=== PATIENT | male | born 1990 | race Hispanic/Latino ===

== ENCOUNTER 2019-07-30 19:20 | Emergency (ER) | payer BC, SELFPAY ==
[2019-07-30] MEDS ORDERED: IBUPROFEN 400 MG TAB ONE (19:40)
[2019-07-30] MEDS ORDERED: TETANUS & DIPHTHERIA TOX,ADULT 0.5 ML VIAL ONE (19:40)
[2019-07-30] MEDS ORDERED: HYDROCODONE/APAP 5/325 MG TAB ONE (19:40)
--- NOTE | 2019-07-30 20:09 | ER ---
Nurse's Notes [facility] Name: Jaquan Watkins Age: 29 yrs Sex: Male : 1990 Arrival Date: 07/30/2019 Time: 19:24 Bed 8 Private MD: Diagnosis: Other bursitis of elbow, left elbow-traumatic Presentation: 07/30 19:28 Presenting complaint: Patient states: "Last night I fell on my arm, and I iced it down aj1 but today Im losing feeling in my pinky and my ring finger and its swollen a lot" Patient reports pain to left forearm. Transition of care: patient was not received from another setting of care. Onset of symptoms was July 29, 2019. Risk Assessment: Do you want to hurt yourself or someone else? Patient reports no desire to harm self or others. Initial Sepsis Screen: Does the patient meet any 2 criteria? No. Patient's initial sepsis screen is negative. Does the patient have a suspected source of infection? No. Patient's initial sepsis screen is negative. Care prior to arrival: None. 19:28 Method Of Arrival: Ambulatory [facility] 19:28 Acuity: [place] 4 aj1 Triage Assessment: 19:29 General: Appears in no apparent distress. uncomfortable, Behavior is calm, cooperative, aj1 appropriate for age. Pain: Complains of pain in palmar aspect of left forearm Pain currently is 10 out of 10 on a pain scale. Neuro: Level of Consciousness is awake, alert, obeys commands. Cardiovascular: Patient's skin is warm and dry. Respiratory: Airway is patent Respiratory effort is even, unlabored, Respiratory pattern is regular, symmetrical. Musculoskeletal: Range of motion: limited in left elbow Swelling present in left elbow and palmar aspect of left forearm. Injury Description: Patient reports that he fell on his arm while running. Historical: - Allergies: 19:29 No Known Allergies; aj1 - Home Meds: 19:29 None [Active]; aj1 - PMHx: 19:29 None; aj1 - PSHx: 19:29 None; aj1 - Immunization history:: Flu vaccine is not up to date. - Social history:: Smoking status: Patient uses tobacco products, 5 cigarettes per day. - Ebola Screening: : Patient denies travel to an Ebola-affected area in the 21 days before illness onset. Screenin:31 Abuse screen: Denies threats or abuse. Nutritional screening: No deficits noted. jb4 Tuberculosis screening: No symptoms or risk factors identified. Fall Risk None identified. Assessment: 19:31 General: Appears in no apparent distress. comfortable, Behavior is calm, cooperative, jb4 appropriate for age. Pain: Complains of pain in left elbow Pain radiates to left hand Pain currently is 10 out of 10 on a pain scale. Quality of pain is described as throbbing. Neuro: Level of Consciousness is awake, alert, obeys commands, Oriented to person, place, time, situation. Cardiovascular: Patient's skin is warm and dry. Respiratory: Airway is patent Respiratory effort is even, unlabored, Respiratory pattern is regular, symmetrical. GI: No deficits noted. No signs and/or symptoms were reported involving the gastrointestinal system. : No deficits noted. No signs and/or symptoms were reported regarding the genitourinary system. EENT: No deficits noted. No signs and/or symptoms were reported regarding the EENT system. Derm: Skin is intact, Skin is pink, warm \\T\\ dry. Musculoskeletal: Amputation of Range of motion: limited in left elbow. 20:34 Reassessment: Patient appears in no apparent distress at this time. Patient and/or jb4 family updated on plan of care and expected duration. Pain level reassessed. Patient is alert, oriented x 3, equal unlabored respirations, skin warm/dry/pink. PT verbalized understanding of d/c and follow up instructions. Vital Signs: 19:29 BP 145 / 91; Pulse 86; Resp 18; Temp 98.0; Pulse Ox 97% on R/A; Weight 87.54 kg (R); aj1 Height 5 ft. 5 in. (165.10 cm) (R); Pain 10/10; 19:29 Body Mass Index 32.12 (87.54 kg, 165.10 cm) aj1 ED Course: 19:24 Patient arrived in ED. cl3 19:29 Triage completed. aj1 19:29 Arm band placed on Patient placed in an exam room. aj1 19:31 Patient has correct armband on for positive identification. Bed in low position. Call jb4 light in reach. Side rails up X 1. Pulse ox on. NIBP on. 19:33 Skyler Gamboa MD is Attending Physician. snw 19:33 Mall[facility] Rolon [facility]C [facility] snw 19:33 Soco Ayala is Primary Nurse. 19:34 Primary Nurse role handed off by Soco Ayala jb4 19:34 Seun Wade, RN is Primary Nurse. jb4 20:03 Elbow Left 3 View XRAY In Process Unspecified. EDMS 20:07 James Baird MD is Referral Physician. snw 20:34 No provider procedures requiring assistance completed. Patient did not have IV access jb4 during this emergency room visit. 20:34 Sling applied to left arm. jb4 Administered Medications: 19:47 Drug: Tetanus-Diphtheria Toxoid Adult 0.5 ml {Recreational Therapist: [employer]. Exp: jb4 03/04/2021. Lot #: [id number]. } Route: IM; Site: right deltoid; 20:30 Follow up: Response: No adverse reaction jb4 19:47 Drug: HYDROcodone-acetaminophen 5 mg-325 mg 1 tabs {Note: Rass score 0.} Route: PO; jb4 20:10 Follow up: Response: No adverse reaction; Pain is decreased jb4 19:47 Drug: Motrin 400 mg Route: PO; jb4 20:10 Follow up: Response: No adverse reaction; Pain is decreased jb4 20:29 Drug: Bactroban Ointment 2 % 1 application Route: Topical; Site: wound; jb4 20:29 Follow up: Response: Medication administered at discharge. jb4 Outcome: 20:08 Discharge ordered by MD. snw 20:34 Discharged to home ambulatory, with family. jb4 20:34 Condition: stable 20:34 Discharge instructions given to patient, family, Instructed on discharge instructions, follow up and referral plans. medication usage, Demonstrated understanding of instructions, follow-up care, medications, Prescriptions given X 2. 20:35 Patient left the ED. jb4 Signatures: Dispatcher [employer] EDWV Marjan Perez RN RN aj1 Mallory Rolon FNP-C PROCESS IMPROVEMENT ANALYST-Csnw Seun Wade, RN RN jb4 Soco Ayala Trice Silva cl3
--- NOTE | 2019-07-30 20:09 | EDPHYS ---
Physician Documentation [facility] Name: Jaquan Watkins Age: 29 yrs Sex: Male : 1990 Arrival Date: 07/30/2019 Time: 19:24 Bed 8 Private MD: ED Physician Skyler Gamboa HPI: 07/30 19:51 This 29 yrs old Male presents to ER via Ambulatory with complaints of Elbow snw Injury. 19:51 The patient or guardian complains of a crush injury, fell onto left elbow, pain, snw swelling, tenderness. The complaints affect the left elbow. Context: The problem was sustained outdoors, resulted from a fall. Onset: The symptoms/episode began/occurred suddenly, last night. Treatment prior to arrival includes: icing the affected extremity. Associated signs and symptoms: Pertinent positives: tingling, of the left ring and pinkie finger. Severity of symptoms: At their worst the symptoms were moderate. The patient has not experienced similar symptoms in the past. It is unknown whether or not the patient has recently seen a physician. Historical: - Allergies: 19:29 No Known Allergies; aj1 - Home Meds: 19:29 None [Active]; aj1 - PMHx: 19:29 None; aj1 - PSHx: 19:29 None; aj1 - Immunization history:: Flu vaccine is not up to date. - Social history:: Smoking status: Patient uses tobacco products, 5 cigarettes per day. - Ebola Screening: : Patient denies travel to an Ebola-affected area in the 21 days before illness onset. ROS: 19:50 Constitutional: Negative for fever, chills, and weight loss, Eyes: Negative for injury, snw pain, redness, and discharge, ENT: Negative for injury, pain, and discharge, Neck: Negative for injury, pain, and swelling, Cardiovascular: Negative for chest pain, palpitations, and edema, Respiratory: Negative for shortness of breath, cough, wheezing, and pleuritic chest pain, Abdomen/GI: Negative for abdominal pain, nausea, vomiting, diarrhea, and constipation, Back: Negative for injury and pain, : Negative for injury, bleeding, discharge, and swelling, Skin: Negative for injury, rash, and discoloration, Neuro: Negative for headache, weakness, numbness, tingling, and seizure, Psych: Negative for depression, anxiety, suicide ideation, homicidal ideation, and hallucinations. 19:50 MS/extremity: Positive for injury or acute deformity, decreased range of motion, pain, swelling, of the left elbow. Exam: 19:49 Constitutional: This is a well developed, well nourished patient who is awake, alert, snw and in no acute distress. Head/Face: Normocephalic, atraumatic. Eyes: Pupils equal round and reactive to light, extra-ocular motions intact. Lids and lashes normal. Conjunctiva and sclera are non-icteric and not injected. Cornea within normal limits. Periorbital areas with no swelling, redness, or edema. ENT: Nares patent. No nasal discharge, no septal abnormalities noted. Tympanic membranes are normal and external auditory canals are clear. Oropharynx with no redness, swelling, or masses, exudates, or evidence of obstruction, uvula midline. Mucous membranes moist. Neck: Trachea midline, no thyromegaly or masses palpated, and no cervical lymphadenopathy. Supple, full range of motion without nuchal rigidity, or vertebral point tenderness. No Meningismus. Chest/axilla: Normal chest wall appearance and motion. Nontender with no deformity. No lesions are appreciated. Cardiovascular: Regular rate and rhythm with a normal S1 and S2. No gallops, murmurs, or rubs. Normal PMI, no JVD. No pulse deficits. Respiratory: Lungs have equal breath sounds bilaterally, clear to auscultation and percussion. No rales, rhonchi or wheezes noted. No increased work of breathing, no retractions or nasal flaring. Abdomen/GI: Soft, non-tender, with normal bowel sounds. No distension or tympany. No guarding or rebound. No evidence of tenderness throughout. Back: No spinal tenderness. No costovertebral tenderness. Full range of motion. Neuro: Awake and alert, GCS 15, oriented to person, place, time, and situation. Cranial nerves II-XII grossly intact. Motor strength 5/5 in all extremities. Sensory grossly intact. Cerebellar exam normal. Normal gait. Psych: Awake, alert, with orientation to person, place and time. Behavior, mood, and affect are within normal limits. 19:49 Musculoskeletal/extremity: Extremities: grossly normal except: noted in the left elbow: contusion, decreased ROM, swelling, tenderness, ROM: limited active range of motion due to pain, Circulation is intact in all extremities. decreased sensation, to fingers 19:49 Skin: Appearance: normal except for affected area, lesion(s), pustule(s) noted, located on the center of ecchymotic area of left elbow. Vital Signs: 19:29 BP 145 / 91; Pulse 86; Resp 18; Temp 98.0; Pulse Ox 97% on R/A; Weight 87.54 kg (R); aj1 Height 5 ft. 5 in. (165.10 cm) (R); Pain 10/; 19:29 Body Mass Index 32.12 (87.54 kg, 165.10 cm) aj1 MDM: 19:33 Patient medically screened. snw 20:09 Data reviewed: vital signs, nurses notes. Data interpreted: Pulse oximetry: on room air snw is 97 %. Interpretation: normal. Counseling: I had a detailed discussion with the patient and/or guardian regarding: the historical points, exam findings, and any diagnostic results supporting the discharge/admit diagnosis, radiology results, the need for outpatient follow up, to return to the emergency department if symptoms worsen or persist or if there are any questions or concerns that arise at home. Special discussion: I have referred the patient to see his PCP for further evaluation of high blood pressure. Based on the history and exam findings, there is no indication for further emergent testing or inpatient evaluation. I discussed with the patient/guardian the need to see the orthopedic surgeon for further evaluation of the symptoms. I discussed with the patient/guardian the need to see the primary care provider for further evaluation of the symptoms. 07/30 19:37 Order name: Elbow Left 3 View XRAY; Complete Time: 20:23 snw 07/30 19:37 Order name: Sling; Complete Time: 20:15 snw Administered Medications: 19:47 Drug: Tetanus-Diphtheria Toxoid Adult 0.5 ml {Warehouse Foreman: [employer]. Exp: jb4 03/04/2021. Lot #: [id number]. } Route: IM; Site: right deltoid; 20:30 Follow up: Response: No adverse reaction jb4 19:47 Drug: HYDROcodone-acetaminophen 5 mg-325 mg 1 tabs {Note: Rass score 0.} Route: PO; jb4 20:10 Follow up: Response: No adverse reaction; Pain is decreased jb4 19:47 Drug: Motrin 400 mg Route: PO; jb4 20:10 Follow up: Response: No adverse reaction; Pain is decreased jb4 20:29 Drug: Bactroban Ointment 2 % 1 application Route: Topical; Site: wound; jb4 20:29 Follow up: Response: Medication administered at discharge. jb4 Disposition: 07/31 07:10 Co-signature as Attending Physician, Skyler Gamboa MD Available for consultation at ps1 all times . Disposition: 07/30/19 20:08 Discharged to Home. Impression: Other bursitis of elbow, left elbow - traumatic. - Condition is Stable. - Discharge Instructions: Bursitis, Hypertension, Heat Therapy. - Prescriptions for Mobic 7.5 mg Oral Tablet - take 1 tablet by ORAL route once daily take with food; 20 tablet. orphenadrine citrate 100 mg Oral Tablet Sustained Release - take 1 tablet by ORAL route 2 times per day As needed; 20 tablet. - Medication Reconciliation Form, Thank You Letter, Antibiotic Education, Prescription Opioid Use form. - Follow up: James Baird MD; When: 2 - 3 days; Reason: Recheck today's complaints, Continuance of care, Re-evaluation by your physician. Signatures: Dispatcher [employer] EDMarjan Gastelum RN RN aj1 Mallory Rolon, TECHNICAL MARKETING ENGINEER-C TECHNICAL MARKETING ENGINEER-Csnw Seun Wade RN RN jb4 Skyler Gamboa MD MD ps1 Corrections: (The following items were deleted from the chart) 07/30 20:35 20:08 07/30/2019 20:08 Discharged to Home. Impression: Other bursitis of elbow, left jb4 elbow - traumatic. Condition is Stable. Forms are Medication Reconciliation Form, Thank You Letter, Antibiotic Education, Prescription Opioid Use. Follow up: James Baird; When: 2 - 3 days; Reason: Recheck today's complaints, Continuance of care, Re-evaluation by your physician. snw
[2019-07-30] MEDS ORDERED: MUPIROCIN 2% OINT 22GM TUBE TOP ONE (20:17)
--- NOTE | 2019-07-30 20:19 | RAD REPORT ---
EXAM DESCRIPTION: RAD - Elbow Left 3 View - 07/30/2019 8:05 pm CLINICAL HISTORY: Left elbow pain status post trauma FINDINGS: No fracture or dislocation is seen. If patient continues have symptoms to suggest an occult fracture follow up plain film series in 7 day s would be recommended
[2019-07-30 21:17] VITALS: BP 145/91; TEMP 98; O2SAT 97
== END 2019-07-30 20:35 | disposition home or self-care (01) ==
LOC: ER 19:20
DX: M70.32 Other bursitis of elbow, left elbow (principal); W18.30XA Fall on same level, unspecified, initial encounter; Y92.9 Unspecified place or not applicable; Y93.89 Activity, other specified; F17.210 Nicotine dependence, cigarettes, uncomplicated
CPT/HCPCS: 90471; 90714; 99284

== ENCOUNTER 2022-01-11 11:00 | Emergency (ER) | payer SELFPAY ==
[2022-01-11] MEDS ORDERED: ONDANSETRON 4 MG/2 ML VIAL ONE (11:40)
[2022-01-11] MEDS ORDERED: MORPHINE 4 MG/ML SYR ONE ×3 (11:40→13:09)
[2022-01-11] MEDS ORDERED: NA CHLORIDE 0.9% 0 ML ONE (11:40)
[2022-01-11 11:47] LABS: Absolute Lymphocytes (CBC) 1.1 K/uL (0.7-4.9); Hematocrit 44.2 % (39.6-49.0); MPV 8.1 fL (7.6-11.3); RBC Red Blood Cell Count 5.13 M/uL (4.33-5.43)
[2022-01-11 12:01] LABS: Urine Blood Trace-intact (Negative); Urine Glucose Negative (Negative); Urine Protein Negative (Negative); Urine pH 8.5 (5.0-7.0)
[2022-01-11 12:11] LABS: Albumin 4.4 g/dL (3.4-5.0); Bilirubin Total 0.6 mg/dL (0.2-1.0); Potassium 4.2 mmol/L (3.5-5.1); Protein, Total 8.3 g/dL (6.4-8.2)
--- NOTE | 2022-01-11 12:11 | RAD REPORT ---
EXAM DESCRIPTION: CT - Stone Protocol - 01/11/2022 11:46 am CLINICAL HISTORY: Flank pain. left flank pain COMPARISON: No comparisons TECHNIQUE: Axial images were obtained without oral or IV contrast. Lack of contrast limits solid org an and vascular assessment. The [id number] spans the entirety of the system partially obscuring uppermost abdomen and lung bases. Coronal reformatted images were obtained and reviewed. All CT scans are performed using dose optimization technique as appropriate and may include automated exposure control or mA/KV adjustment according to patient size. FINDINGS: The lower lung pineda are clear. Imaged portions of the liver and spleen show no suspicious findings on non-contrast imaging. The panc reas and adrenal glands are normal. No pathologic lymphadenopathy in the abdomen or pelvis. There is a 5 mm stone at the left UPJ resulting mild left hydronephrosis. Small calculus is present m id-pole right kidney. No bowel obstruction, free air, free fluid or abscess. Normal appendix noted.Small fat containing umb ilical hernia. No significant bony abnormality. IMPRESSION: 5 mm stone left UPJ resulting in mild left hydronephrosis. Punctate calculus right kidney mid calyx without hydronephrosis.
[2022-01-11 12:17] LABS: Urine Bacteria NONE SEEN /HPF (NONE SEEN)
[2022-01-11] MEDS ORDERED: TAMSULOSIN 0.4 MG SR CAP ONE (13:07)
[2022-01-11] MEDS ORDERED: MAGNESIUM SULFATE 1 gm IVPB 1 GM/100 ML BAG IV ONE (13:11)
--- NOTE | 2022-01-11 14:45 | ER ---
Nurse's Notes [facility] Name: Jaquan Watkins Age: 31 yrs Sex: Male : 1990 Arrival Date: 01/11/2022 Time: 11:02 Bed 14 Private MD: Diagnosis: Calculus of kidney with calculus of ureter Presentation: 01/11 11:04 Chief complaint: Patient states: "since 7am I've had this sharp pain in my stomach and ab2 it goes to my lower back." Pt denies any urinary symptoms. Pt denies n/v/d. Coronavirus screen: Vaccine status: Patient reports being unvaccinated. Client denies travel out of the [place] in the last 14 days. At this time, the client does not indicate any symptoms associated with coronavirus-19. Ebola Screen: Patient negative for fever greater than or equal to 101.5 degrees Fahrenheit, and additional compatible Ebola Virus Disease symptoms Patient denies exposure to infectious person. Patient denies travel to an Ebola-affected area in the 21 days before illness onset. No symptoms or risks identified at this time. Initial Sepsis Screen: Does the patient meet any 2 criteria? No. Patient's initial sepsis screen is negative. Does the patient have a suspected source of infection? No. Patient's initial sepsis screen is negative. Risk Assessment: Do you want to hurt yourself or someone else? Patient reports no desire to harm self or others. Onset of symptoms is unknown. 11:04 Method Of Arrival: Ambulatory ab2 11:04 Acuity: [place] 3 ab2 Triage Assessment: 11:06 General: Appears uncomfortable, Behavior is calm, cooperative, appropriate for age. ab2 Pain: Complains of pain in back and left upper quadrant Pain radiates to left low back. Respiratory: Airway is patent Respiratory effort is even, unlabored. GI: Reports upper abdominal pain, cramping. Historical: - Allergies: 11:06 No Known Allergies; ab2 - PMHx: 11:06 None; ab2 - PSHx: 11:06 None; ab2 - Immunization history:: Adult Immunizations up to date. - Social history:: Smoking status: Patient denies any tobacco usage or history of. - Family history:: not pertinent. - Hospitalizations: : No recent hospitalization is reported. Screenin:26 Abuse screen: Denies threats or abuse. Denies injuries from another. Nutritional cb5 screening: No deficits noted. Tuberculosis screening: No symptoms or risk factors identified. 13:26 Fall Risk None identified. cb5 Assessment: 11:15 General: Appears uncomfortable, well groomed, Behavior is calm, cooperative, cb5 appropriate for age. Pain: Complains of pain in left low back and abdomen and back and left upper quadrant. Neuro: No deficits noted. Cardiovascular: No deficits noted. Respiratory: No deficits noted. GI: No deficits noted. Bowel sounds present X 4 quads. : No deficits noted. EENT: No deficits noted. Derm: No deficits noted. Musculoskeletal: No deficits noted. 13:36 Pain: Complains of pain in left low back and abdomen and back Pain currently is 1 out cb5 of 10 on a pain scale. 14:15 General: pt asleep, no distress, safety precautions are in effect.. cb5 Vital Signs: 11:04 BP 148 / 95; Pulse 87; Resp 16; Temp 97.8(TE); Pulse Ox 99% on R/A; Weight 97.52 kg; ab2 Height 5 ft. 5 in. (165.10 cm); Pain 10/10; 14:18 BP 125 / 74; Pulse 79; Resp 16; Pulse Ox 98% ; cb5 14:58 BP 121 / 78; Pulse 77; Resp 16; Temp 98.6; Pulse Ox 98% ; Pain 0/10; cb5 11:04 Body Mass Index 35.78 (97.52 kg, 165.10 cm) ab2 ED Course: 11:02 Patient arrived in ED. as 11:06 Triage completed. ab2 11:06 Bed in low position. Call light in reach. cb5 11:07 Arm band placed on right wrist. ab2 11:08 Randolph Miranda MD is Attending Physician. rn 11:26 Negrita Hargrove RN is Primary Nurse. cb5 11:42 CBC with Diff Sent. cb5 11:42 CMP Sent. cb5 11:42 Urine Microscopic Only Sent. cb5 11:48 CT Stone Protocol In Process Unspecified. EDMS 14:59 IV discontinued. cb5 14:59 No provider procedures requiring assistance completed. cb5 Administered Medications: 11:42 Drug: Zofran (Ondansetron) 4 mg Route: IVP; Site: right antecubital; cb5 11:42 Drug: morphine 4 mg Route: IVP; Site: right antecubital; cb5 13:08 Drug: Magnesium Sulfate 1 grams Route: IVPB; Infused Over: 1 hrs; Site: right cb5 antecubital; 13:08 Drug: Flomax (tamsulosin) 0.4 mg Route: PO; cb5 13:08 Drug: morphine 4 mg Route: IVP; Site: right antecubital; cb5 14:59 Not Given (Patient Refused): Demerol (meperidine) 12.5 mg IVP once; RASS on ADMIN: cb5 Combtv4, Very Agttd3, Agttd2, Rstlss1, AlertClm0, Drwsy-1, Lt Sdtn-2, Mod Sdtn-3, Dp Sdtn-4, UnArsble-5 Outcome: 14:44 Discharge ordered by . rn 14:59 Discharged to home ambulatory. 5 14:59 Condition: stable 14:59 Discharge instructions given to patient. 15:00 Patient left the ED. 5 Signatures: Dispatcher [employer] Tejal Phan Roman, MD MD rn Boman, Colleen, RN RN cb5 Manuel Robison
--- NOTE | 2022-01-11 14:45 | EDPHYS ---
Physician Documentation [facility] Name: Jaquan Watkins Age: 31 yrs Sex: Male : 1990 Arrival Date: 01/11/2022 Time: 11:02 Bed 14 Private MD: ED Physician Randolph Miranda HPI: 01/11 11:51 This 31 yrs old Male presents to ER via Ambulatory with complaints of rn Abdominal Pain. 11:51 The patient presents with abdominal pain in the left lower quadrant. Onset: The rn symptoms/episode began/occurred this morning. The symptoms radiate to left back. Associated signs and symptoms: Pertinent positives: nausea, Pertinent negatives: blood in stools, diarrhea, dysuria, fever, vomiting, vomiting blood. The symptoms are described as intermittent, sharp. Modifying factors: The symptoms are alleviated by nothing, the symptoms are aggravated by nothing. Severity of pain: At its worst the pain was moderate in the emergency department the pain is unchanged. The patient has experienced similar episodes in the past. The patient has not recently seen a physician. Pt reports LLQ abd pain that began this AM, no trauma, no fever, no urinary symptoms. Has happened twice before but went away on its own after an hour or so. Reports assoc left flank pain. Pain radiates to left groin.. Historical: - Allergies: 11:06 No Known Allergies; ab2 - PMHx: 11:06 None; ab2 - PSHx: 11:06 None; ab2 - Immunization history:: Adult Immunizations up to date. - Social history:: Smoking status: Patient denies any tobacco usage or history of. - Family history:: not pertinent. - Hospitalizations: : No recent hospitalization is reported. ROS: 11:51 Constitutional: Negative for fever, chills, and weight loss, Eyes: Negative for injury, rn pain, redness, and discharge, Neck: Negative for injury, pain, and swelling, Cardiovascular: Negative for chest pain, palpitations, and edema, Respiratory: Negative for shortness of breath, cough, wheezing, and pleuritic chest pain, Abdomen/GI: + LLQ abd pain Back: + left lower back and flank pain : Negative for injury, bleeding, discharge, and swelling, MS/Extremity: Negative for injury and deformity, Skin: Negative for injury, rash, and discoloration, Neuro: Negative for headache, weakness, numbness, tingling, and seizure. Exam: 11:51 Constitutional: This is a well developed, well nourished patient who is awake, alert, rn pacing in room, appears uncomfortable Head/Face: Normocephalic, atraumatic. Cardiovascular: Regular rate and rhythm. No pulse deficits. Respiratory: No increased work of breathing, no retractions or nasal flaring. Abdomen/GI: Soft, non-tender Back: No spinal tenderness. No costovertebral tenderness. Full range of motion. Skin: Warm, dry MS/ Extremity: Pulses equal, no cyanosis. Neuro: Awake and alert, GCS 15 Vital Signs: 11:04 BP 148 / 95; Pulse 87; Resp 16; Temp 97.8(TE); Pulse Ox 99% on R/A; Weight 97.52 kg; ab2 Height 5 ft. 5 in. (165.10 cm); Pain 10/10; 14:18 BP 125 / 74; Pulse 79; Resp 16; Pulse Ox 98% ; cb5 14:58 BP 121 / 78; Pulse 77; Resp 16; Temp 98.6; Pulse Ox 98% ; Pain 0/10; cb5 11:04 Body Mass Index 35.78 (97.52 kg, 165.10 cm) ab2 MDM: 11:08 Patient medically screened. rn 14:43 Differential diagnosis: diverticulitis, Ureterolithiasis, urinary tract infection. Data rn reviewed: vital signs, nurses notes, lab test result(s), radiologic studies, CT scan, and as a result, I will discharge patient. Counseling: I had a detailed discussion with the patient and/or guardian regarding: the historical points, exam findings, and any diagnostic results supporting the discharge/admit diagnosis, lab results, radiology results, the need for outpatient follow up, to return to the emergency department if symptoms worsen or persist or if there are any questions or concerns that arise at home. Response to treatment: the patient's symptoms have markedly improved after treatment, sleeping comfortably. Special discussion: Based on the patient's Hx, exam, and Dx evaluation, there is no indication for emergent surgery or inpatient Tx. It is understood by the patient/guardian that if the Sx's persist or worsen they need to return immediately for re-evaluation. I discussed with the patient/guardian in detail that at this point there is no indication for admission to the hospital. It is understood, however, that if the symptoms persist or worsen the patient needs to return immediately for re-evaluation. 01/11 11:13 Order name: CBC with Diff; Complete Time: 12:14 rn 01/11 11:13 Order name: CMP; Complete Time: 12:14 rn 01/11 11:13 Order name: Urine Microscopic Only; Complete Time: 12:26 rn 01/11 11:13 Order name: CT Stone Protocol; Complete Time: 12:14 rn 01/11 12:01 Order name: Urine Dipstick-Ancillary; Complete Time: 12:14 EDMS 01/11 11:13 Order name: IV Saline Lock; Complete Time: 11:42 rn 01/11 11:13 Order name: Labs collected and sent; Complete Time: 11:42 rn 01/11 11:13 Order name: Urine Dipstick-Ancillary (obtain specimen) rn Administered Medications: 11:42 Drug: Zofran (Ondansetron) 4 mg Route: IVP; Site: right antecubital; cb5 11:42 Drug: morphine 4 mg Route: IVP; Site: right antecubital; cb5 13:08 Drug: Magnesium Sulfate 1 grams Route: IVPB; Infused Over: 1 hrs; Site: right cb5 antecubital; 13:08 Drug: Flomax (tamsulosin) 0.4 mg Route: PO; cb5 13:08 Drug: morphine 4 mg Route: IVP; Site: right antecubital; cb5 14:59 Not Given (Patient Refused): Demerol (meperidine) 12.5 mg IVP once; RASS on ADMIN: cb5 Combtv4, Very Agttd3, Agttd2, Rstlss1, AlertClm0, Drwsy-1, Lt Sdtn-2, Mod Sdtn-3, Dp Sdtn-4, UnArsble-5 Disposition Summary: 01/11/22 14:44 Discharge Ordered Location: Home rn Problem: new rn Symptoms: have improved rn Condition: Stable rn Diagnosis - Calculus of kidney with calculus of ureter rn Followup: rn - With: Private Physician - When: As needed - Reason: Recheck today's complaints, Re-evaluation by your physician Discharge Instructions: - Discharge Summary Sheet rn - Kidney Stones rn - Renal Colic rn - Dietary Guidelines to Help Prevent Kidney Stones rn Forms: - Medication Reconciliation Form rn - Thank You Letter rn - 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 Stop taking once you feel that you have passed the kidney stone.; 5 capsule; Refills: 0, Product Selection Permitted - ondansetron 4 mg Oral tablet,disintegrating - take 1 tablet by ORAL route every 8 hours As needed; 10 tablet; Refills: 0, rn Product Selection Permitted - Tramadol 50 mg Oral Tablet - take 1 tablet by ORAL route every 8 hours as needed; 12 tablet; Refills: 0, rn Product Selection Permitted Signatures: Dispatcher [employer] Randolph Sheets MD MD rn Boman, Colleen, RN RN cb5 Manuel Robison
[2022-01-11 15:05] VITALS: O2SAT 98
[2022-01-11 15:07] VITALS: BP 121/78; TEMP 98.6
== END 2022-01-11 15:00 | disposition home or self-care (01) ==
LOC: ER 11:00
DX: N20.2 Calculus of kidney with calculus of ureter (principal)
CPT/HCPCS: 36415; 74176; 76377; 80053; 81003; 81015; 85025; 96374; 96375; 99283; J2405; J3475; J7030